=== PATIENT | male | born 1990 | race Caucasian/White ===

== ENCOUNTER → 2017-05-01 | Outpatient (CLI) | payer OTHER | END | disposition home or self-care (01) | LOC: C.LABSPEC 11:14 | PROVIDERS: ATTEND Nurse Practitioner Adult Health | DX: N50.819 Testicular pain, unspecified (principal) ==

== ENCOUNTER → 2017-05-08 | Outpatient (CLI) | payer OTHER ==
--- NOTE | 2017-05-08 11:49 | DIAGNOSTIC IMAGING REPORT ---
TESTICULAR ULTRASOUND CLINICAL HISTORY: N50.819 Testicular [id number] COMPARISON STUDY: No previous studies for comparison. FINDINGS: The right testis measures 43 x 26 x 27 mm. The left testis measures 44 x 32 x 22 mm. There is no evidence of intratesticular mass. There is no evidence of testicular torsion. There are trace bilateral hydroceles. There are no sonographic findings to indicate acute epididymitis. IMPRESSION: 1. No evidence of intratesticular mass 2. No evidence of testicular torsion Electronically signed by: Chino Ward M.D. 05/08/2017 11:48 AM Dictated Date/Time: 05/08/2017 11:47 AM
== END | disposition home or self-care (01) ==
LOC: C.ULTR 11:05
PROVIDERS: ATTEND Nurse Practitioner Adult Health
DX: N50.819 Testicular pain, unspecified (principal)